=== PATIENT | male | born 1950 | race Caucasian/White ===

== ENCOUNTER 2019-04-01 14:02 | Observation (INO) | payer MEDICARE ==
[~2019-04-01] VITALS: Ht 162.6 cm; Wt 127.0 kg
[2019-04-01] VITALS (19 sets, daily range): BP systolic 117–168; BP diastolic 65–95; PULSE 72–86; RESP 12–24; Ht 162.6 cm; Wt 127.0 kg
[~2019-04-01 14:02] MED LIST: CLINDAMYCIN 600 MG/50 ML D5W IVPB IVPB ONE; ETOMIDATE 20 MG INJ ONE
[2019-04-01] MEDS ORDERED: MIDAZOLAM 1 MG/ML 2 ML INJ ONE ×2 (15:27→15:57)
--- NOTE | 2019-04-01 15:50 | PREAC ---
Date/Time of Note Date/Time of Note DATE: 04/01/19 TIME: 15:48 Anesthesia Eval and Record Evaluation Time Pre-Procedure Interview DATE: 04/01/19 TIME: 15:48 Age 68 Sex male NPO: 8 hrs Preoperative diagnosis Biliary obstruction Planned procedure ERCP Past Medical History Past Medical History: Includes Cardio: HTN, Dyslipidemia Endo: Diabetes GI: Morbid obesity Surgery & Anesthesia Issues No known issue Meds Anticoagulation: No Beta Sabine within 24 hr: No Reason Beta Sabine not given: Pt. not on B-Sabine Meds reviewed: Yes Allergies Coded Allergies: Iodinated Contrast- Oral and IV Dye (Verified Allergy, Mild, 04/01/19) Allergies Reviewed: Yes Labs/Studies Labs Reviewed: Reviewed by anesthesiologist test: N/A Studies: ECG Pre-procedure Exam Last vitals BP:124/67, P:88, Spo2:100%, T:98,9 Airway: Adequate mouth opening, Adequate thyromental dist Mallampati: Mallampati III Teeth: Normal Lung: Normal Heart: Normal ASA Physical Status ASA physical status: 3 Emergency: None Planned Anesthetic General/MAC: ETT Planned Pain Management Parenteral pain med Pre-operative Attestations Prior to commencing anesthesia and surgery, the patient was re-evaluated, there was verification of: *The patient's identity *The results of appropriate recent lab work and preoperative vital signs *The above evaluation not changing prior to induction *Anesthetic plan, risk benefits, alternative and complications discussed with patient/family; questions answered; patient/family understands, accepts and wishes to proceed. ADRIÁN ALEXIS MD April 01, 2019 15:50
[2019-04-01] MEDS ORDERED: FENTAnyl 50 MCG/ML VIAL ONE (15:57)
[2019-04-01] MEDS ORDERED: FENTAnyl 50 MCG/ML VIAL IV PRN (16:00)
[2019-04-01] MEDS ORDERED: KETOROLAC 30 MG INJ IV PRN (16:00)
[2019-04-01] MEDS ORDERED: MEPERIDINE 25 MG INJ IV PRN (16:00)
[2019-04-01] MEDS ORDERED: METOCLOPRAMIDE 10 MG INJ IV PRN (16:00)
[2019-04-01] MEDS ORDERED: DIPHENHYDRAMINE 50 MG INJ IV PRN (16:00)
[2019-04-01] MEDS ORDERED: HYDROmorphONE 1 MG/5 ML IV SYRINGE IV PRN ×2 (16:00)
[2019-04-01] MEDS ORDERED: ONDANSETRON 4 MG INJ IV PRN ×2 (16:00→18:30)
[2019-04-01] MEDS ORDERED: GENTAMICIN 80 MG INJ ONE (17:03)
[2019-04-01] MEDS ORDERED: CEFAZOLIN 1 GM INJ ONE (17:13)
[2019-04-01] MEDS ORDERED: PROPOFOL 20 ML ONE (17:13)
[2019-04-01] MEDS ORDERED: ONDANSETRON 4 MG INJ ONE (17:13)
[2019-04-01] MEDS ORDERED: ROCURONIUM 50 MG INJ ONE (17:13)
[2019-04-01] MEDS ORDERED: LIDOCAINE 2% (SDV) 5 ML INJ ONE (17:13)
--- NOTE | 2019-04-01 17:39 | OPPN ---
Date/Time of Note Date/Time of Note DATE: 04/01/19 TIME: 17:34 Operative Report Preoperative Diagnosis COMMON DUCT STONES Postoperative Diagnosis COMMON DUCT STONES. Operation/Procedure Performed ERCP CHOLEDOCHOSCOPY HOLMIUM LASER LITHOTRIPSY BALOON SWEEP REMOVAL OF STONES Surgeon see signature line optometric assistant dr jewell Anesthesia: general Estimated blood loss: minimal Transfusion Required none Specimen NONE Grafts/Implants none Complications none SOFIA SAMS MD April 01, 2019 17:39
--- NOTE | 2019-04-01 17:55 | HP ---
Date/Time of Note Date/Time of Note DATE: 04/01/19 TIME: 17:55 Assessment/Plan VTE Prophylaxis SCD applied (from Nsg): Yes Pharmacological prophylaxis: NA/contraindicated Pharm contraindication: patient refusal Lines/Catheters IV Catheter Type (from Nrsg): Peripheral IV Assessment/Plan Assessment/Plan 1. acute choledocholithiasis with Biliary obstruction s/p ERCP, sphincterotomy and Ballon sweep 2. concerned about acute Cholangitis due to WBC High and Intracatble abdominal pain 3. H/o DM II, poorly controlled 4. H/O HTN 5. H/o LE Neuropahty Plan: Admission to med/surge floor IVF NS at 75 cc/hr Pain control IV abx zosyn GI Dr. Benavides will be following pt SCD for DVT Prophylaxis pepcid for GI prophylaxis Results 24hrs Laboratory Tests Test 04/01/19 15:12 04/01/19 15:21 04/01/19 17:43 Prothrombin Time 13.2 Prothrombin Time Ratio 1.0 INR International Normalized Ratio 0.99 Bedside Glucose 231 H 161 HPI/ROS Admit Date/Time Admit Date/Time 04/01/2019 Hx of Present Illness 68-year-old male had undergone an ERCP cholangioscopy and multiple stones and sludge removal and laser lithotripsy with holmium laser. Had a very aggressive procedure yesterday, now he has mild pain and his white count is elevated, mild cholangitis suspected. Thus, the patient will be kept on antibiotics. Today, patient is also a known diabetic with sleep apnea, hypertension. Past history of cholangitis, cholecystitis and cholecystectomy. pt has h/o acute cholangitis, he udnerwent ERCP with sphincterotomy and ballon sweep Post ERCP he is still c/o abdominal pain , headache, ROS Constitutional: no complaints ENT: other (headache) Respiratory: no complaints Cardiovascular: no complaints Gastrointestinal: pain, nausea Genitourinary: no complaints Musculoskeletal: no complaints Skin: no complaints Neurologic: no complaints Endocrine: no complaints Lymphatic: no complaints Psychological: no complaints Immunologic: no complaints PMH/Family/Social Past Medical History Medical History: diabetes, high cholesterol, hypertension, other Medications Current Medications Hydromorphone HCl (Dilaudid) 0.2 mg PACU PRN IV MILD PAIN 1-3; Start 04/01/19 at 16:00; Stop 04/01/19 at 23:00 Hydromorphone HCl (Dilaudid) 0.4 mg PACU PRN IV MOD PAIN 4-6; Start 04/01/19 at 16:00; Stop 04/01/19 at 23:00 Fentanyl (Sublimaze) 25 mcg PACU ORDER PRN IV MILD PAIN 1-3; Start 04/01/19 at 16:00; Stop 04/01/19 at 23:00 Ketorolac Tromethamine (Toradol) 30 mg PACU ORDER PRN IV FOR PAIN AFTER IV NARCOTIC MED; Start 04/01/19 at 16:00; Stop 04/01/19 at 23:00 Ondansetron HCl (Zofran Inj) 4 mg PACU ORDER PRN IV NAUSEA/VOMITING; Start 04/01/19 at 16:00; Stop 04/01/19 at 23:00 Metoclopramide HCl (Reglan) 10 mg PACU ORDER PRN IV NAUSEA/VOMITING; Start 04/01/19 at 16:00; Stop 04/01/19 at 23:00 Meperidine HCl (Demerol) 25 mg PACU ORDER PRN IV .RIGORS; Start 04/01/19 at 16:00; Stop 04/01/19 at 23:00 Diphenhydramine HCl (Benadryl) 25 mg PACU ORDER PRN IV .PRURITUS; Start 04/01/19 at 16:00; Stop 04/01/19 at 23:00 Coded Allergies: Iodinated Contrast- Oral and IV Dye (Verified Allergy, Mild, 04/01/19) Past Surgical History Past Surgical Hx: no surgical history Family History Significant Family History: no pertinent family hx Social History Alcohol Use: none Drug Use: none Exam/Review of Systems Vital Signs Vitals Vital Signs Date Temp Pulse Resp B/P (MAP) Pulse Ox O2 O2 Flow FiO2 Time Delivery Rate 04/01/19 78 23 153/81 100 Mask 10.0 17:50 (105) 04/01/19 98.4 17:35 Exam Constitutional: alert Psych: no complaints Head: normocephalic Eyes: nl conjunctiva ENMT: nl external ears & nose Neck: supple Respiratory: clear to auscultation, normal air movement Cardiovascular: regular rate and rhythm, nl pulses Gastrointestinal: soft, tender (TTP in RUQ< BS+) Musculoskeletal: nl extremities to inspection Extremities: normal pulses Neurological: TRIAL [employer] JUSTICE II-XII intact, nl mental status, nl speech, nl strength Skin: nl turgor Lymph: nl lymph nodes CELESTE GUERRERO MD April 01, 2019 17:55
--- NOTE | 2019-04-01 18:06 | PAC ---
Date/Time of Note Date/Time of Note DATE: 04/01/19 TIME: 18:05 Post-Anesthesia Notes Post-Anesthesia Note Last documented vital signs Vital Signs Date Temp Pulse Resp B/P (MAP) Pulse Ox O2 O2 Flow FiO2 Time Delivery Rate 04/01/19 Simple 10.0 17:58 Mask 04/01/19 78 23 153/81 100 17:50 (105) 04/01/19 98.4 17:35 Activity: WNL Respiratory function: WNL Cardiovascular function: WNL Mental status: Baseline Pain reasonably controlled: Yes Hydration appropriate: Yes Nausea/Vomiting absent: Yes Comments BP:134/67, P:78, Spo2:97%, T:98,8 ADRIÁN ALEXIS MD April 01, 2019 18:06
[2019-04-01] MEDS ORDERED: HYDROmorphONE 1 MG/5 ML IV SYRINGE IV ONE (18:17)
[2019-04-01] MEDS ORDERED: SOD CHLORIDE 0.9% 1,000 ML IV SCH (18:21)
[2019-04-01] MEDS ORDERED: ACETAMINOPHEN 325 MG TAB PO PRN (18:30)
[2019-04-01] MEDS ORDERED: NACL 0.9% 3 ML SYG IV SCH (18:30)
[2019-04-01] MEDS ORDERED: ALBUTEROL/IPRATROPIUM (NEB) 3 ML AMP HHN PRN (18:30)
[2019-04-01] MEDS ORDERED: DOCUSATE SODIUM 100 MG CAP PO PRN (18:30)
[2019-04-01] MEDS ORDERED: morphine 2 MG INJ IV PRN (18:30)
[2019-04-01] MEDS ORDERED: BISACODYL (EC) 5 MG TAB PO PRN (18:30)
[2019-04-01] MEDS ORDERED: BISACODYL 10 MG SUPP PR PRN (18:30)
[2019-04-01] MEDS ORDERED: MAGNESIUM HYDROXIDE 30ML CUP PO PRN (18:30)
[2019-04-01] MEDS ORDERED: ZOLPIDEM 5 MG TAB PO PRN (18:30)
[2019-04-01] MEDS ORDERED: GLUCAGON 1 MG INJ IM PRN (19:00)
[2019-04-01] MEDS ORDERED: GLUCOSE GEL 15 GRAM TUBE BUCCAL PRN (19:00)
[2019-04-01] MEDS ORDERED: DEXTROSE 50% 50 ML SYRINGE IV PRN ×2 (19:00)
[2019-04-01] MEDS ORDERED: GLUCOSE GEL 15 GRAM TUBE PO PRN ×2 (19:00)
[2019-04-01] MEDS: INSULIN ASPART [NOVOLOG] 3 ML PEN SC SCH (21:00)
[2019-04-01] MEDS: FAMOTIDINE 20 MG INJ IV SCH (21:01)
[2019-04-01] MEDS: CEFAZOLIN 1 GM/50 ML (PMX) 50 ML IVPB SCH (21:10)
[2019-04-01] MEDS: HYDROCODONE/APAP (5/325) TAB PO PRN (21:18)
--- NOTE | 2019-04-02 00:19 | GILP ---
DATE OF PROCEDURE: 04/01/2019 PREOPERATIVE DIAGNOSIS: Retained common duct stones, large stones. The patient had a biliary stent placed in the past for cholangitis, now brought for ERCP. PROCEDURE DONE: ERCP, removal of sludge and stone with balloon sweep, choledochoscopy, cholangioscop y with SpyGlass, using a holmium laser lithotripsy of common duct stones. ANESTHESIOLOGIST: Dr. Mejía. POSTOPERATIVE DIAGNOSIS: Multiple stones and sludge in the common bile duct status post cholecystect fabio and removal of previously placed biliary stent. DESCRIPTION OF PROCEDURE: After obtaining informed consent, the patient underwent general anesthesia , was placed in prone position on a fluoroscopy table, advanced an Olympus therapeutic JF ERCP scope into the esophagus, stomach and duodenum. Upon entering the second and third part of the duodenum, a biliary stent was found and was captured with a snare initially, but it slipped so by using a biopsy forceps captured and removed the entire with the scope and the stent out of the patient. I reintroduced the scope back into second part of the duodenum. A biliary balloon was advanced into the bile duct, and with a 12 mm balloon, small amount of dye injected and then flushed, many sweeps w ere done nearly 4 to 5 times. I removed large and small stones and sludge-like material and still co uld not clear the common bile duct. Then, a guidewire was placed in the right hepatic duct. Balloon was taken out. Over the guidewire, I advanced a cholangioscope SpyGlass into the bile duct. It failed initially, an d then second attempt, I was able to get the cholangioscope SpyGlass into the bile duct all the way t o the bifurcation. Examination revealed not only sludge but 2 large stones. I advanced the holmium laser fiber through the cholangioscope into the bile duct. Under direct chola ngioscopic visualization using a holmium laser, lithotripsy was carried out. Both stones were blaste d with the laser and powdered the stone. Then, the cholangioscope SpyGlass were removed and the lase r, of course, was removed. Then using a biliary balloon, again I swept many times all the remaining sludge and small stones were removed completely and the fragments removed. At the conclusion, occlusion cholangiography did not demonstrate any remaining stone post-cholecystectomy was noted. Even cystic duct was also flushed ou t with the balloon. No stones came out. At the conclusion, bile was flowing, so no stent was placed and the scope was withdrawn. The patient was sent to recovery, and as the patient still was coughin g and had some obstructive signs of bleeding, but at the end, he had oxygen saturation at 99%. He wa s sent to admission for observation because rest of the condition, diabetes, hypertension, sleep apne a, he will be observed overnight and antibiotics will be continued and Dr. Braulio Urbano will observe him in the hospital if he stabilized tomorrow, we will discharge him depending on the situation. Po stop, no other major complications noted. Dictated By: SOFIA BARNETT Conf#: [id number] DID#: [id number]
[2019-04-02 00:20] VITALS: BP 125/70; PULSE 78; RESP 18
[2019-04-02] MEDS: ACCU-CHEK XX SCH (02:00)
[2019-04-02] MEDS: CEFAZOLIN 1 GM/50 ML (PMX) 50 ML IVPB SCH (05:25)
[2019-04-02 07:07] VITALS: BP 117/65; PULSE 79; RESP 17
[2019-04-02] MEDS: FAMOTIDINE 20 MG INJ IV SCH ×2 (08:17→20:44)
[2019-04-02] MEDS: INSULIN ASPART [NOVOLOG] 3 ML PEN SC SCH ×4 (08:19→20:50)
[2019-04-02] MEDS ORDERED: PIPER-TAZO 2.25 GM (PMX) 50 ML IVPB SCH (09:00)
--- NOTE | 2019-04-02 09:39 | CONS ---
DATE OF ADMISSION: 04/01/2019 DATE OF CONSULTATION: 04/02/2019 HISTORY OF PRESENT ILLNESS: This 68-year-old male had undergone an ERCP cholangioscopy and multiple stones and sludge removal and laser lithotripsy with holmium laser. Had a very aggressive procedure yesterday, now he has mild pain and his white count is elevated, mild cholangitis suspected. Thus, the patient will be kept on antibiotics. Today, patient is also a known diabetic with sleep apnea, hypertension. Past history of cholangitis, cholecystitis and cholecystectomy. His primary doctor is Dr. [facility]. The patient is also not controlling his diet. His diabetes is out of control. PHYSICAL EXAMINATION: GENERAL: At present he is afebrile, obese, mildly icteric sclerae. LUNGS: Stable. ABDOMEN: Obese but soft. Mild tenderness on deep palpation in the right upper and epigastric area and lab data was reviewed. PLAN: Will be to continue antibiotic, change it to Zosyn and control the diabetes blood sugar with diet instructions and insulin as advised by Dr. Guerrero. When he is more stable, will discharge home on Cipro and Flagyl on this particular patient. He will also be given also deoxycholic acid 500 mg twice a day because he is forming sludge very rapidly because of lithogenic bile. Dictated By: SOFIA BARNETT Conf#: [id number] DID#: [id number] CC: CELESTE GUERRERO MD;*EndCC* MTDD
[2019-04-02] MEDS: HYDROCODONE/APAP (5/325) TAB PO PRN (09:58)
--- NOTE | 2019-04-02 10:57 | CONS ---
Assessment/Plan Assessment/Plan Assessment/Plan (Daily) 1. s/p ERCP 2. Choledocholithiasis 3. H/o HTN 4.abdominal pain 5. CKD III Plan: doing well post ERCP tolerated Diet well plan for d/c home today if ok with Dr. Benavides sliding scaleinsulin follow up rosemarie whitman in clinic for CKDIII follow up with Dr. Benavides for post ERCP Consultation Date/Type/Reason Admit Date/Time April 01, 2019 at 18:25 Initial Consult Date Date/Time of Note DATE: 04/02/19 TIME: 10:56 24 HR Interval Summary Free Text/Dictation doing ok,no abdominal pain, tolerated o diet well, Exam/Review of Systems Exam Vitals Vital Signs Date Temp Pulse Resp B/P (MAP) Pulse Ox O2 O2 Flow FiO2 Time Delivery Rate 04/02/19 98.0 79 17 117/65 100 Nasal 07:07 (82) Cannula 04/02/19 2.0 00:20 Intake and Output 04/01/19 04/01/19 04/02/19 1414:59 22:59 06:59 IntakeIntake Total 150 ml 1300 ml OutputOutput Total 1050 ml BalanceBalance 150 ml 250 ml Constitutional: alert Psych: no complaints Head: normocephalic Eyes: nl conjunctiva ENMT: nl external ears & nose Neck: supple, non-tender Respiratory: clear to auscultation, normal air movement Cardiovascular: regular rate and rhythm, nl pulses Gastrointestinal: soft, non-tender Musculoskeletal: nl extremities to inspection, nl gait and stance Extremities: normal pulses Neurological: GIFT [employer]ICER II-XII intact, nl mental status, nl speech, nl strength Skin: nl turgor Lymph: nl lymph nodes Results Result Diagram: 04/02/19 0446 04/02/19 0446 Results 24hrs Laboratory Tests Test 04/01/19 15:12 04/01/19 15:21 04/01/19 17:43 04/01/19 20:59 Prothrombin Time 13.2 Prothrombin Time 1.0 Ratio INR International 0.99 Normalized Ratio Bedside Glucose 231 H 161 171 Test 04/02/19 04:46 04/02/19 07:17 04/02/19 08:11 White Blood Count 14.8 H Red Blood Count 5.15 Hemoglobin 14.3 Hematocrit 44.8 Mean Corpuscular 87.0 Volume Mean Corpuscular 27.8 L Hemoglobin Mean Corpuscular 31.9 L Hemoglobin Concent Red Cell 14.6 H Distribution Width Platelet Count 244 Mean Platelet 10.2 Volume Immature 0.800 H Granulocytes % Neutrophils % 89.0 H Lymphocytes % 3.1 L Monocytes % 6.8 Eosinophils % 0.0 Basophils % 0.3 Nucleated Red 0.0 Blood Cells % Immature 0.120 H Granulocytes # Neutrophils # 13.2 H Lymphocytes # 0.5 L Monocytes # 1.0 H Eosinophils # 0.0 Basophils # 0.0 Nucleated Red 0.0 Blood Cells # Sodium Level 138 Potassium Level 4.4 Chloride Level 101 Carbon Dioxide 28 Level Anion Gap 9 Blood Urea 30 H Nitrogen Creatinine 1.65 H Est Glomerular 42 L Filtrat Rate mL/min Glucose Level 248 H Hemoglobin A1c 9.7 H Calcium Level 8.9 Magnesium Level 1.9 Total Bilirubin 2.8 H Direct Bilirubin 1.50 H Indirect Bilirubin 1.3 H Aspartate Amino 357 H Transf (AST/SGOT) Alanine 258 H Aminotransferase ( ALT/SGPT) Alkaline 172 H Phosphatase Total Protein 7.6 Albumin 3.7 Globulin 3.90 H Albumin/Globulin 0.94 Ratio Lab Scanned Report REFERENCE LAB Bedside Glucose 210 Medications Medication Current Medications IV Flush (NS 3 ml) 3 ml PER PROTOCOL IV ; Start 04/01/19 at 18:30 Ondansetron HCl (Zofran Inj) 4 mg Q4H PRN IV NAUSEA/VOMITING; Start 04/01/19 at 18:30 Acetaminophen (Tylenol Tab) 650 mg Q6H PRN PO .PAIN 1-3 OR TEMP Last administered on 04/02/19at 06:34; Admin Dose 650 MG; Start 04/01/19 at 18:30 Acetaminophen/ Hydrocodone Bitart ([place] (5/325)) 1 tab Q6H PRN PO .MOD PAIN 4- 6 Last administered on 04/02/19at 09:58; Admin Dose 1 TAB; Start 04/01/19 at 18:30 Morphine Sulfate (morphine) 2 mg Q4H PRN IV .SEVERE PAIN 7-10 Last administered on 04/01/19at 19:50; Admin Dose 2 MG; Start 04/01/19 at 18:30 Docusate Sodium (Colace) 100 mg Q12H PRN PO .CONSTIPATION; Start 04/01/19 at 18:30 Magnesium Hydroxide (Milk Of Mag) 30 ml DAILY PRN PO .CONSTIPATION; Start 04/01/19 at 18:30 Bisacodyl (Dulcolax) 5 mg DAILY PRN PO .CONSTIPATION; Start 04/01/19 at 18:30 Bisacodyl (Dulcolax Supp) 10 mg DAILY PRN OR .CONSTIPATION; Start 04/01/19 at 18:30 Zolpidem Tartrate (Ambien) 5 mg QHS PRN PO .INSOMNIA; Start 04/01/19 at 18:30 Famotidine (Pepcid Iv) 20 mg Q12 IV Last administered on 04/02/19at 08:17; Admin Dose 20 MG; Start 04/01/19 at 21:00 Albuterol/ Ipratropium (Duoneb) 3 ml Q2H RESP THERAPY PRN HHN SHORTNESS OF BREATH; Start 04/01/19 at 18:30 Diagnostic Test (Pha) (Accu-Chek) 1 ea 02 XX ; Start 04/02/19 at 02:00 Insulin Aspart (Novolog Insulin Pen) NOVOLOG *MODERATE* ALGORITHM WITH MEALS BEDTIME SC Last administered on 04/02/19at 08:19; Admin Dose 4 UNIT; Start 04/01/19 at 21:00 Miscellaneous Information 1 ea NOTE XX ; Start 04/01/19 at 19:00 Glucose (Glutose) 15 gm Q15M PRN PO DECREASED GLUCOSE; Start 04/01/19 at 19:00 Glucose (Glutose) 22.5 gm Q15M PRN PO DECREASED GLUCOSE; Start 04/01/19 at 19:00 Dextrose (D50w Syringe) 25 ml Q15M PRN IV DECREASED GLUCOSE; Start 04/01/19 at 19:00 Dextrose (D50w Syringe) 50 ml Q15M PRN IV DECREASED GLUCOSE; Start 04/01/19 at 19:00 Glucagon (Glucagen) 1 mg Q15M PRN IM DECREASED GLUCOSE; Start 04/01/19 at 19:00 Glucose (Glutose) 15 gm Q15M PRN BUCCAL DECREASED GLUCOSE; Start 04/01/19 at 1 9:00 Piperacillin Sod/ Tazobactam Sod 50 ml @ 100 mls/hr Q6 IVPB ; Start 04/02/19 at 16:00 CELESTE GUERRERO MD April 02, 2019 10:57
--- NOTE | 2019-04-02 11:02 | PDOCDIS ---
Discharge Instructions CONDITION [id number] Patient Condition: [id number] Good HOME CARE INSTRUCTIONS: [id number] Special Diet: [id number] consistent carbohydrate diet ACTIVITY: [id number] Activity Restrictions: [id number] Slowly Increase Activity Rest between Activity Avoid heavy lifting Avoid Heavy Housework FOLLOW UP/APPOINTMENTS Follow-up Plan Follow up with his own PCP and non profit financial controller in 1-2 week Follow up with GI Dr. Benavides in 1 week CELESTE GUERRERO MD April 02, 2019 11:02
[2019-04-02] MEDS: SOD CHLORIDE 0.9% 1,000 ML IV SCH (11:19)
[2019-04-02] MEDS: NAPROXEN 250 MG TAB PO PRN (13:05)
[2019-04-02 14:29] VITALS: BP 114/56; PULSE 79; RESP 16
[2019-04-02] MEDS ORDERED: traMADol 50 MG TAB PO ONE (15:00)
[2019-04-02] MEDS: PIPER-TAZO 2.25 GM (PMX) 50 ML IVPB SCH ×3 (18:08→23:55)
[2019-04-02 20:26] VITALS: BP 128/58; PULSE 77; RESP 20
[2019-04-02] MEDS ORDERED: INSULIN GLARGINE [LANTus] (100 UNITS/ML) SYG SC SCH (21:00)
[2019-04-03] MEDS: NAPROXEN 250 MG TAB PO PRN (01:14)
[2019-04-03] MEDS: ACCU-CHEK XX SCH (02:10)
[2019-04-03 03:02] VITALS: BP 122/60; PULSE 74; RESP 20
[2019-04-03] MEDS: SOD CHLORIDE 0.9% 1,000 ML IV SCH (05:37)
[2019-04-03] MEDS: PIPER-TAZO 2.25 GM (PMX) 50 ML IVPB SCH ×2 (05:37→13:02)
[2019-04-03 07:52] VITALS: BP 139/72; PULSE 78; RESP 18
--- NOTE | 2019-04-03 08:04 | PN ---
Date/Time of Note Date/Time of Note DATE: 04/03/19 TIME: 08:04 Assessment/Plan VTE Prophylaxis Risk score (from Ns)>0 risk: 2 SCD applied (from Ns): Yes Pharmacological prophylaxis: NA/contraindicated Pharm contraindication: low risk/ambulating Lines/Catheters IV Catheter Type (from Nrsg): Peripheral IV Assessment/Plan Assessment/Plan 1. s/p ERCP 2. Choledocholithiasis 3. H/o HTN 4.abdominal pain 5. CKD III Plan: doing well, BP stable, paln for d/c home today with PO ciprofloaxin and Flagyl Naproxen prn headache will follow up Result Diagram: 04/03/19 0442 04/03/19 0442 Results 24hrs Laboratory Tests Test 04/02/19 08:11 04/02/19 12:44 04/02/19 17:56 04/02/19 20:42 Bedside Glucose 210 188 210 237 H Test 04/03/19 02:05 04/03/19 04:42 Bedside Glucose 231 H White Blood Count 6.8 # Red Blood Count 4.74 Hemoglobin 13.0 L Hematocrit 41.2 L Mean Corpuscular 86.9 Volume Mean Corpuscular 27.4 L Hemoglobin Mean Corpuscular 31.6 L Hemoglobin Concent Red Cell 14.6 H Distribution Width Platelet Count 197 Mean Platelet Volume 10.1 Immature 0.400 Granulocytes % Neutrophils % 78.0 H Lymphocytes % 9.1 L Monocytes % 11.5 H Eosinophils % 0.7 Basophils % 0.3 Nucleated Red Blood 0.0 Cells % Immature 0.030 Granulocytes # Neutrophils # 5.3 Lymphocytes # 0.6 L Monocytes # 0.8 Eosinophils # 0.1 Basophils # 0.0 Nucleated Red Blood 0.0 Cells # Sodium Level 137 Potassium Level 3.8 Chloride Level 103 Carbon Dioxide Level 25 Anion Gap 9 Blood Urea Nitrogen 26 H Creatinine 1.58 H Est Glomerular 44 L Filtrat Rate mL/min Glucose Level 206 Calcium Level 8.5 Magnesium Level 2.2 Total Bilirubin 3.6 H Direct Bilirubin 2.40 #H Indirect Bilirubin 1.2 H Aspartate Amino 107 #H Transf (AST/SGOT) Alanine 122 H Aminotransferase (AL T/SGPT) Alkaline Phosphatase 172 H Total Protein 7.5 Albumin 3.6 Globulin 3.90 H Albumin/Globulin 0.92 Ratio Lipase 73 Exam/Review of Systems Exam Vitals Vital Signs Date Temp Pulse Resp B/P (MAP) Pulse Ox O2 O2 Flow FiO2 Time Delivery Rate 04/03/19 98.3 78 18 139/72 99 Room Air 07:52 (94) 04/02/19 2.0 00:20 Intake and Output 04/02/19 04/02/19 04/03/19 1515:00 23:00 07:00 IntakeIntake Total 660 ml 975 ml 575 ml OutputOutput Total 400 ml 300 ml BalanceBalance 260 ml 675 ml 575 ml Results Results 24hrs Laboratory Tests Test 04/02/19 08:11 04/02/19 12:44 04/02/19 17:56 04/02/19 20:42 Bedside Glucose 210 188 210 237 H Test 04/03/19 02:05 04/03/19 04:42 Bedside Glucose 231 H White Blood Count 6.8 # Red Blood Count 4.74 Hemoglobin 13.0 L Hematocrit 41.2 L Mean Corpuscular 86.9 Volume Mean Corpuscular 27.4 L Hemoglobin Mean Corpuscular 31.6 L Hemoglobin Concent Red Cell 14.6 H Distribution Width Platelet Count 197 Mean Platelet Volume 10.1 Immature 0.400 Granulocytes % Neutrophils % 78.0 H Lymphocytes % 9.1 L Monocytes % 11.5 H Eosinophils % 0.7 Basophils % 0.3 Nucleated Red Blood 0.0 Cells % Immature 0.030 Granulocytes # Neutrophils # 5.3 Lymphocytes # 0.6 L Monocytes # 0.8 Eosinophils # 0.1 Basophils # 0.0 Nucleated Red Blood 0.0 Cells # Sodium Level 137 Potassium Level 3.8 Chloride Level 103 Carbon Dioxide Level 25 Anion Gap 9 Blood Urea Nitrogen 26 H Creatinine 1.58 H Est Glomerular 44 L Filtrat Rate mL/min Glucose Level 206 Calcium Level 8.5 Magnesium Level 2.2 Total Bilirubin 3.6 H Direct Bilirubin 2.40 #H Indirect Bilirubin 1.2 H Aspartate Amino 107 #H Transf (AST/SGOT) Alanine 122 H Aminotransferase (AL T/SGPT) Alkaline Phosphatase 172 H Total Protein 7.5 Albumin 3.6 Globulin 3.90 H Albumin/Globulin 0.92 Ratio Lipase 73 Medications Medication Current Medications IV Flush (NS 3 ml) 3 ml PER PROTOCOL IV ; Start 04/01/19 at 18:30 Ondansetron HCl (Zofran Inj) 4 mg Q4H PRN IV NAUSEA/VOMITING; Start 04/01/19 at 18:30 Acetaminophen (Tylenol Tab) 650 mg Q6H PRN PO .PAIN 1-3 OR TEMP Last admini stered on 04/02/19at 06:34; Admin Dose 650 MG; Start 04/01/19 at 18:30 Acetaminophen/ Hydrocodone Bitart ([place] (5/325)) 1 tab Q6H PRN PO .MOD PAIN 4- 6 Last administered on 04/02/19 09:58; Admin Dose 1 TAB; Start 04/01/19 at 18:30 Morphine Sulfate (morphine) 2 mg Q4H PRN IV .SEVERE PAIN 7-10 Last administered on 04/01/19 19:50; Admin Dose 2 MG; Start 04/01/19 at 18:30 Docusate Sodium (Colace) 100 mg Q12H PRN PO .CONSTIPATION; Start 04/01/19 at 18:30 Magnesium Hydroxide (Milk Of Mag) 30 ml DAILY PRN PO .CONSTIPATION; Start 04/01/19 at 18:30 Bisacodyl (Dulcolax) 5 mg DAILY PRN PO .CONSTIPATION; Start 04/01/19 at 18:30 Bisacodyl (Dulcolax Supp) 10 mg DAILY PRN [place] .CONSTIPATION; Start 04/01/19 at 18:30 Zolpidem Tartrate (Ambien) 5 mg QHS PRN PO .INSOMNIA; Start 04/01/19 at 18:30 Famotidine (Pepcid Iv) 20 mg Q12 IV Last administered on 04/02/19at 20:44; Admin Dose 20 MG; Start 04/01/19 at 21:00 Albuterol/ Ipratropium (Duoneb) 3 ml Q2H RESP THERAPY PRN HHN SHORTNESS OF BREATH; Start 04/01/19 at 18:30 Diagnostic Test (Pha) (Accu-Chek) 1 ea 02 XX Last administered on 04/03/19 02:10; Admin Dose 1 EA; Start 04/02/19 at 02:00 Insulin Aspart (Novolog Insulin Pen) NOVOLOG *MODERATE* ALGORITHM WITH MEALS BEDTIME SC Last administered on 04/02/19 20:50; Admin Dose 2 UNIT; Start 09/10 at 21:00 Miscellaneous Information 1 ea NOTE XX ; Start 04/01/19 at 19:00 Glucose (Glutose) 15 gm Q15M PRN PO DECREASED GLUCOSE; Start 04/01/19 at 19:00 Glucose (Glutose) 22.5 gm Q15M PRN PO DECREASED GLUCOSE; Start 04/01/19 at 19:00 Dextrose (D50w Syringe) 25 ml Q15M PRN IV DECREASED GLUCOSE; Start 04/01/19 at 19:00 Dextrose (D50w Syringe) 50 ml Q15M PRN IV DECREASED GLUCOSE; Start 04/01/19 at 19:00 Glucagon (Glucagen) 1 mg Q15M PRN IM DECREASED GLUCOSE; Start 04/01/19 at 19:00 Glucose (Glutose) 15 gm Q15M PRN BUCCAL DECREASED GLUCOSE; Start 04/01/19 at 19:00 Piperacillin Sod/ Tazobactam Sod 50 ml @ 100 mls/hr Q6 IVPB Last administered on 04/03/19at 05:37; Admin Dose 100 MLS/HR; Start 04/02/19 at 16:00 Sodium Chloride 1,000 ml @ 75 mls/hr [id number] IV Last administered on 04/03/19at 05:37; Admin Dose 75 MLS/HR; Start 04/02/19 at 11:30 Insulin Glargine (Lantus) 10 units QHS SC Last administered on 04/02/19at 20:48; Admin Dose 10 UNITS; Start 04/02/19 at 21:00 Naproxen (Naprosyn) 250 mg BID PRN PO headache Last administered on 04/03/19at 01:14; Admin Dose 250 MG; Start 04/02/19 at 11:30 CELESTE GUERRERO MD April 03, 2019 08:04
[2019-04-03] MEDS: FAMOTIDINE 20 MG INJ IV SCH (08:25)
[2019-04-03] MEDS: INSULIN ASPART [NOVOLOG] 3 ML PEN SC SCH ×2 (08:27→12:47)
[2019-04-03] MEDS ORDERED: CIPR500T4 PO (15:30)
[2019-04-03] MEDS ORDERED: METR500T PO (15:30)
[2019-04-03] MEDS ORDERED: NAPR-683 PO (15:30)
--- NOTE | 2019-04-03 22:51 | DS ---
Date/Time of Note Date/Time of Note DATE: 04/03/19 TIME: 22:51 Discharge Summary Admission/Discharge Info Admit Date/Time April 01, 2019 at 18:25 Discharge Date/Time April 03, 2019 at 16:25 Discharge Diagnosis 1. acute choledocholithiasis with Biliary obstruction s/p ERCP, sphincterotomy and Ballon sweep 2. concerned about acute Cholangitis due to WBC High and Intracatble abdominal pain 3. H/o DM II, poorly controlled 4. H/O HTN 5. H/o LE Neuropahty Patient Condition: Good Consults GI consult Dr. Benavides Procedures ERCP with sphincterotomy and ballon sweep done on 04/01/2019 Hx of Present Illness 68-year-old male had undergone an ERCP cholangioscopy and multiple stones and sludge removal and laser lithotripsy with holmium laser. Had a very aggressive procedure yesterday, now he has mild pain and his white count is elevated, mild cholangitis suspected. Thus, the patient will be kept on antibiotics. Today, patient is also a known diabetic with sleep apnea, hypertension. Past history of cholangitis, cholecystitis and cholecystectomy. pt has h/o acute cholangitis, he udnerwent ERCP with sphincterotomy and ballon sweep Post ERCP he is still c/o abdominal pain , headache an dadmitted to Med/surge floor Hospital Course Upon admission to floor, pt was noted to have elevated WBC count, Given IV abx zosyn, IVF NS als ogiven Naproxen given for headache, Afebirle, B Pstable after pain controla nd GI clearance he was discharged home with Po ciprofloxacin and PO flagyl Home Meds Active Scripts Naproxen* (Naproxen*) 250 Mg Tablet, 250 MG PO BID PRN for headache , #20 TAB Prov:CELESTE GUERRERO MD 04/03/19 Metronidazole* (Flagyl*) 500 Mg Tablet, 500 MG PO TID, #21 TAB Prov:CELESTE GUERRERO MD 04/03/19 Ciprofloxacin Hcl* (Ciprofloxacin Hcl*) 500 Mg Tablet, 500 MG PO BID, #14 TAB Prov:CELESTE GUERRERO MD 04/03/19 Follow-up Plan Follow up with his own PCP and battery loader in 1-2 week Follow up with GI Dr. Benavides in 1 week Primary Care Provider Not On Staff Doctor Pending Labs Laboratory Tests Test 04/03/19 02:05 04/03/19 04:42 04/03/19 08:24 04/03/19 12:44 Bedside 231 193 215 Glucose mg/dL (70-220) mg/dL (70-220) mg/dL (70-220) White Blood 6.8 Count 10^3/ul (4.8-1 0.8) Red Blood 4.74 Count 10^6/ul (4.70- 6.10) Hemoglobin 13.0 g/dl (14.0-18. 0) Hematocrit 41.2 % (42.0-52.0) Mean 86.9 Corpuscular fl (82.0-101.0 Volume ) Mean 27.4 Corpuscular pg (29.0-33.0) Hemoglobin Mean 31.6 Corpuscular g/dl (32.0-37. Hemoglobin Conc 0) ent Red Cell 14.6 Distribution % (11.5-14.5) Width Platelet Count 197 10^3/UL (140-4 15) Mean Platelet 10.1 Volume fl (7.4-10.4) Immature 0.400 Granulocytes % % (0.001-0.429 ) Neutrophils % 78.0 % (39.0-77.0) Lymphocytes % 9.1 % (15.0-51.0) Monocytes % 11.5 % (0.0-11.0) Eosinophils % 0.7 % (0.0-7.0) Basophils % 0.3 % (0.0-2.0) Nucleated Red 0.0 Blood Cells % /100WBC (0.0-0 .0) Immature 0.030 Granulocytes # 10^3/ul (0.0-0 .031) Neutrophils # 5.3 10^3/ul (1.6-7 .5) Lymphocytes # 0.6 10^3/ul (0.8-2 .9) Monocytes # 0.8 10^3/ul (0.3-0 .9) Eosinophils # 0.1 10^3/ul (0.0-0 .5) Basophils # 0.0 10^3/ul (0.0-0 .1) Nucleated Red 0.0 Blood Cells # 10^3/ul (0.0-0 .0) Sodium Level 137 mmol/L (135-14 4) Potassium 3.8 Level mmol/L (3.5-5. 1) Chloride Level 103 mmol/L (97-110 ) Carbon Dioxide 25 Level mmol/L (21-31) Anion Gap 9 (5-13) Blood Urea 26 Nitrogen mg/dl (7-20) Creatinine 1.58 mg/dl (0.61-1. 24) Est Glomerular 44 Filtrat mL/min (>60) Rate mL/min Glucose Level 206 mg/dl (70-220) Calcium Level 8.5 mg/dl (8.4-10. 2) Magnesium 2.2 Level mg/dl (1.7-2.5 ) Total 3.6 Bilirubin mg/dl (0.2-1.3 ) Direct 2.40 Bilirubin mg/dl (0.00-0. 20) Indirect 1.2 Bilirubin mg/dl (0-1.1) Aspartate Amino 107 Transf (AST/SGO IU/L (15-46) T) Alanine 122 Aminotransferas IU/L (13-69) e (ALT/SGPT) Alkaline 172 Phosphatase IU/L (42-121) Total Protein 7.5 g/dl (6.1-8.1) Albumin 3.6 g/dl (3.3-4.9) Globulin 3.90 g/dl (1.3-3.2) Albumin/Globuli 0.92 n Ratio Lipase 73 U/L (23-300) CELESTE GUERRERO MD April 03, 2019 22:51
== END 2019-04-03 16:25 | disposition home or self-care (01) ==
LOC: GIL 14:02 → MS1 18:25
PROVIDERS: ADMIT Internal Medicine; ATTEND Internal Medicine
DX: K80.50 Calculus of bile duct without cholangitis or cholecystitis without obstruction (principal); I10 Essential (primary) hypertension; E11.42 Type 2 diabetes mellitus with diabetic polyneuropathy; E11.65 Type 2 diabetes mellitus with hyperglycemia; I12.9 Hypertensive chronic kidney disease with stage 1 through stage 4 chronic kidney disease, or unspecified chronic kidney disease; E11.22 Type 2 diabetes mellitus with diabetic chronic kidney disease; N18.3 Chronic kidney disease, stage 3 (moderate)
CPT/HCPCS: 43265; 74330; 80053; 82962; 83036; 83690; 83735; 85025; 85610; G0378; J0690; J1170; J1200; J1580; J1815; J2250; J2270; J2405; J2543; J3010; J7030